=== PATIENT | male | born 1990 | race Caucasian/White ===

== ENCOUNTER 2022-11-09 03:29 | Emergency (ER) | payer OTHER, SELFPAY ==
[2022-11-09 03:35] VITALS: BP 142/92; PULSE 104; RESP 20; TEMP 36.8; O2SAT 98; BMI 34.8
[2022-11-09 03:41] VITALS: PULSE 101; O2SAT 96
[2022-11-09] MEDS: SODIUM CHLORIDE 0.9% 1,000 ML 1000 ML IV (03:50)
[2022-11-09] MEDS: ONDANSETRON 4 MG/2 ML INJ IV (03:50)
[2022-11-09 03:59] LABS: Add Manual Diff / Slide Review NO; Basophils Absolute Auto 0 /uL (0-100); Basophils Percent Auto 0.4 % (0-2); Eosinophils Absolute Auto 100 /uL (0-450); Eosinophils Percent Auto 1.1 % (2-4); Hematocrit 46.6 % (41-53); Hemoglobin 16.1 g/dL (13.5-17.5); Lymphocytes Absolute Auto 1400 /uL (1100-4500); Lymphocytes Percent Auto 11.9 % (25-40); Mean Corpuscular HGB Conc 34.5 % (30-36); Mean Corpuscular Hemoglobin 29.8 PG (26-34); Mean Corpuscular Volume 86.4 fL (80-100); Monocytes Absolute Auto 1100 /uL (0-900); Monocytes Percent Auto 9.9 % (3-14); Neutrophils Absolute Auto 8700 /uL (1500-7000); Neutrophils Percent Auto 76.7 % (50-75); Platelet Count 172 X10^3/uL (150-400); Red Blood Cell Count 5.39 X10^6/uL (4.5-5.9); White Blood Cell Count 11.4 X10^3/uL (4.5-11.0)
[2022-11-09 04:00] VITALS: BP 128/80; PULSE 88; O2SAT 98
--- NOTE | 2022-11-09 04:06 | ED.NAVMDI ---
HPI - Nausea/Vomiting/Diarrhea General Chief complaint: Nausea/Vomiting/Diarrhea Stated complaint: abd. pain/diarrhea/vomiting Time Seen by Provider: 11/09/22 03:44 Source: patient Mode of arrival: Ambulatory History of Present Illness HPI Narrative: Patient is a 32-year-old male with history of depression anxiety presenting today with diarrhea vomiting ongoing for the last 4 days. He reports more than 10 episodes of nonbloody diarrhea daily. You had a couple episodes of vomiting some nausea medicine. He is not dizzy or lightheaded. He tried Pepto-Bismol [id number] but it did not really help. He is having some very mild abdominal cramping. Tonight he just exhausted and tired. He denies eating anything bad no analysis sick. He may have had a fever 3 nights ago but nothing since. He is no chest pain palpitations dizziness or other symptoms. Related Data Previous Rx's Medication Instructions Recorded ondansetron 4 mg disintegrating 4 mg PO Q8H PRN nausea and 11/09/22 tablet vomiting #10 tabs Allergies Allergy/AdvReac Type Severity Reaction Status Date / Time No Known Drug Allergies Allergy Verified 11/09/22 03:59 Review of Systems Review of Systems ROS Unobtainable: All systems reviewed & are unremarkable except as noted in HPI and below Patient History Social History Smoking Status: Current some day smoker Smoking Status: Current some day smoker tobacco type: vaping Substance Use Type: does not use Exam Initial Vital Signs Initial Vital Signs: Vital Signs Temperature 98.3 F 11/09/22 03:35 Pulse Rate 104 H 11/09/22 03:35 Respiratory Rate 20 11/09/22 03:35 Blood Pressure 142/92 H 11/09/22 03:35 Pulse Oximetry 98 11/09/22 03:35 Oxygen Delivery Method 11/09/22 03:35 GENERAL: Alert pleasant 32-year-old male who appears to not feel well and in no acute distress. HEENT: Head atraumatic,EOMI, pupils reactive, face symmetric, moist mucous membranes CARDIOVASCULAR: Regular rate and rhythm without murmurs, rubs or gallops. RESPIRATORY: Breath sounds equal bilaterally, no wheezes rales or rhonchi. ABDOMEN: Soft, nontender. Normoactive bowel sounds all 4 quadrants. No guarding or rebound. EXTREMITIES: Normal range of motion, no clubbing or edema. Neurovascularly intact NEUROLOGICAL: Alert and oriented x4. SKIN: Warm, dry, no laceration, no petechiae, no rashes or lesions. Course Orders Ordered: ED Orders 11/09/22 03:50 Complete Blood Count AUTO DIFF Stat Comprehensive Metabolic Panel Stat Lipase Stat Discontinued Medications Sodium Chloride (Normal Saline 0.9%) 1,000 mls @ 1,000 mls/hr IV BOLUS ONE Stop: 11/09/22 04:45 Last Infusion: 11/09/22 04:59 Dose: 0 mls/hr Documented By: Admin: 11/09/22 03:50 Dose: 1,000 mls/hr Documented By: PATTI Ondansetron HCl (Ondansetron 4 Mg/2 Ml Inj) 4 mg IV NOW ONE Stop: 11/09/22 03:47 Last Admin: 11/09/22 03:50 Dose: 4 mg Documented By: PATTI Vital Signs Vital signs: Vital Signs - 8 hr 11/09/22 03:35 11/09/22 03:41 11/09/22 04:00 Temperature 98.3 F Pulse Rate 104 H 101 H Respiratory Rate 20 Blood Pressure 142/92 H 128/80 Pulse Oximetry 98 96 Oxygen Delivery Method Room Air 11/09/22 04:00 11/09/22 04:30 11/09/22 04:30 Temperature Pulse Rate 88 89 Respiratory Rate Blood Pressure 126/78 Pulse Oximetry 98 98 Oxygen Delivery Method 11/09/22 05:00 11/09/22 05:00 Temperature Pulse Rate 77 Respiratory Rate Blood Pressure 124/75 Pulse Oximetry 98 Oxygen Delivery Method MDM - Nausea/Vomiting/Diarrhea Lab Data 11/09/22 03:50 11/09/22 03:50 Labs: Lab Results 11/09/22 11/09/22 Range/Units 03:50 03:50 WBC 11.4 H (4.5-11.0) X10^3/uL RBC 5.39 (4.5-5.9) X10^6/uL Hgb 16.1 (13.5-17.5) g/dL Hct 46.6 (41-53) % MCV 86.4 (80-100) fL MCH 29.8 (26-34) PG MCHC 34.5 (30-36) % RDW 13.0 (11.6-14.8) % Plt Count 172 (150-400) X10^3/uL Neut % (Auto) 76.7 H (50-75) % Lymph % (Auto) 11.9 L (25-40) % Nolan % (Auto) 9.9 (3-14) % Eos % (Auto) 1.1 L (2-4) % Baso % (Auto) 0.4 (0-2) % Neut # (Auto) 8700 H (5842-3640) /uL Lymph # (Auto) 1400 (8320-3186) /uL Nolan # (Auto) 1100 H (0-900) /uL Eos # (Auto) 100 (0-450) /uL Baso # (Auto) 0 (0-100) /uL Sodium 139 (137-145) mmol/L Potassium 3.9 (3.4-5.1) mmol/L Chloride 102 (98-107) mmol/L Carbon Dioxide 26 (22-32) mmol/L BUN 18 (9-20) mg/dL Creatinine 0.95 (0.66-1.25) mg/dL Estimated GFR > 60 (>60) mL/min BUN/Creatinine Ratio 18.9 (6-22) Glucose 126 H (70-100) mg/dL Calcium 8.8 (8.4-10.2) mg/dL Total Bilirubin 1.0 (0.2-1.3) mg/dL AST 28 (17-59) IU/L ALT 41 (<50) IU/L Alkaline Phosphatase 77 (38-126) U/L Total Protein 7.6 (6.3-8.2) g/dL Albumin 4.4 (3.5-5.0) g/dL Globulin 3.2 (1.7-4.1) g/dL Albumin/Globulin Ratio 1.4 (1.0-2.8) Lipase 68 (23-300) U/L [facility] Narrative Medical decision making narrative: Patient 32-year-old male with history of diarrhea and nausea ongoing for the last number of days. No evidence significant dehydration he is tolerating fluids. He did not have any episodes of diarrhea here in the ED. at this time supportive care only. He has no significant electrolyte abnormalities or evidence of anemia. At this time he does not require any imaging. Discharge Plan Departure Patient Disposition: Home Clinical Impression: Gastroenteritis Instructions: DI for Viral Gastroenteritis -- Adult Activity Restrictions/Additional Instructions: 1) You have been diagnosed with gastroenteritis 2) What to do: Drink frequent but small amounts of fluids. I recommend Gatorade or a Gatorade-like product, as it has small amounts of sugar and salts that improve fluid retention. 3) Take medications as directed You may try Imodium as directed Zofran 4 mg every 8 hours if needed for nausea or vomiting--> SENT TO [facility] 4) Follow up with your primary care provider in 2-3 days 5) Return to ER if you should have any new or worsening symptoms such as, unable to hold down fluids despite use of anti-nausea medications and the small volume oral rehydration strategy. Prescriptions: New ondansetron 4 mg tablet,disintegrating 4 mg PO Q8H PRN (Reason: nausea and vomiting) Qty: 10 0RF Stand Alone Forms: Patient Portal/API
[2022-11-09 04:10] LABS: Alanine Aminotransferase 41 IU/L (<50); Albumin 4.4 g/dL (3.5-5.0); Albumin Globulin Ratio 1.4 (1.0-2.8); Alkaline Phosphatase 77 U/L (38-126); Aspartate Aminotransferase 28 IU/L (17-59); BUN Creatinine Ratio 18.9 (6-22); Blood Urea Nitrogen 18 mg/dL (9-20); Calcium 8.8 mg/dL (8.4-10.2); Carbon Dioxide 26 mmol/L (22-32); Chloride 102 mmol/L (98-107); Estimated Glomerular Filt Rate > 60 mL/min (>60); Globulin 3.2 g/dL (1.7-4.1); Glucose 126 mg/dL (70-100); HEMOLYSIS < 15 (0-50); Lipase 68 U/L (23-300); Potassium 3.9 mmol/L (3.4-5.1); Sodium 139 mmol/L (137-145); Total Protein 7.6 g/dL (6.3-8.2)
[2022-11-09 04:30] VITALS: BP 126/78; PULSE 89; O2SAT 98
[2022-11-09 05:00] VITALS: BP 124/75; PULSE 77; O2SAT 98
== END 2022-11-09 05:14 | disposition home or self-care (01) ==
PROVIDERS: Emergency Provider Emergency Medicine
DX: K52.9 Noninfective gastroenteritis and colitis, unspecified (principal)
CPT/HCPCS: 36415; 80053; 83690; 85025; 96361; 96374; 99284; J2405